=== PATIENT | female | born 1955 | race Hispanic/Latino ===

== ENCOUNTER 2021-11-14 14:13 | Inpatient (IN) | payer SELFPAY ==
[~2021-11-14] VITALS: Ht 152.4 cm; Wt 63.5 kg
[2021-11-14] MEDS ORDERED: SODIUM CHLORIDE FLUSH 10 ML SYR INJ PRN (16:00)
[2021-11-14 16:11] LABS: BASOPHILS % 0.5 % (0.0-1.0); EOSINOPHILS # (AUTO) 0.1 (0.0-0.4); EOSINOPHILS % 0.7 % (0.0-6.0); HEMOGLOBIN 11.6 g/dL (12.0-16.0); LYMPHOCYTES # (AUTO) 0.5 (1.0-3.2); LYMPHOCYTES % 6.8 % (18.0-39.1); MEAN CORPUSCULAR HEMOGLOBIN 25.5 pg (28-32); MEAN CORPUSCULAR HGB CONC 32.2 g/dL (31-35); MEAN CORPUSCULAR VOLUME 79.1 fL (81-99); MONOCYTES # (AUTO) 0.5 (0.2-0.8); MONOCYTES % 6.4 % (4.4-11.3); NEUTROPHILS # (AUTO) 6.3 (2.1-6.9); NEUTROPHILS % 85.2 % (38.7-80.0); PLATELET COUNT 279 x10e3/uL (140-360); RED BLOOD COUNT 4.55 x10e6/uL (3.6-5.1); RED CELL DISTRIBUTION WIDTH 15.1 % (11.7-14.4)
[2021-11-14 16:12] LABS: INR 1.01; PROTHROMBIN TIME 14.2 seconds (11.9-14.5)
[2021-11-14 16:13] LABS: PARTIAL THROMBOPLASTIN TIME 32.1 seconds (23.8-35.5)
[2021-11-14 16:19] LABS: ALANINE AMINOTRANSFERASE 16 IU/L (0-55); ALBUMIN 3.2 g/dL (3.5-5.0); ALBUMIN/GLOBULIN RATIO 0.8 (0.8-2.0); ALKALINE PHOSPHATASE 72 IU/L (40-150); ANION GAP 14.9 mmol/L (8-16); BLOOD UREA NITROGEN 15 mg/dL (7-26); BUN/CREATININE RATIO 17 (6-25); CALCIUM 8.7 mg/dL (8.4-10.2); CARBON DIOXIDE 25 mmol/L (22-29); CHLORIDE 105 mmol/L (98-107); CREATININE, SERUM 0.87 mg/dL (0.57-1.11); GLUCOSE 169 mg/dL (74-118); POTASSIUM 3.9 mmol/L (3.5-5.1); SODIUM 141 mmol/L (136-145)
[2021-11-14 16:28] LABS: CLARITY,URINE HAZY (CLEAR); COLOR,URINE YELLOW (YELLOW); KETONES,URINE NEGATIVE (NEGATIVE); LEUKOCYTE ESTERASE ,URINE TRACE (NEGATIVE); NITRITE,URINE NEGATIVE (NEGATIVE); PROTEIN,URINE DIPSTICK 1+ (NEGATIVE); URINE UROBILINOGEN 1 mg/dL (0.2 - 1)
[2021-11-14 16:37] LABS: AMORPHOUS SEDIMENT,URINE MODERATE (FEW); BACTERIA,URINE MANY /HPF; WBC,URINE (MAN) 0-5 /HPF (0-5)
[2021-11-14] MEDS ORDERED: ONDANSETRON HCL INJ 2MG/ML 2ML 2 MG/ML VIAL IV STA (16:50)
[2021-11-14] MEDS ORDERED: Morphine 4mg INJECTION 4 MG/ML INJ IV ONE (17:00)
[2021-11-14] MEDS ORDERED: Morphine 4mg INJECTION 4 MG/ML INJ ONE (17:07)
[2021-11-14] MEDS ORDERED: ONDANSETRON HCL INJ 2MG/ML 2ML 2 MG/ML VIAL ONE (17:07)
[2021-11-14 18:26] VITALS: BP 176/56
[2021-11-14] MEDS ORDERED: DIOVAN160 MG PO (18:29)
[2021-11-14] MEDS ORDERED: BENFOTIAMINE150 MG PO (18:31)
[2021-11-14] MEDS ORDERED: CARVEDILOL12.5 MG PO (18:31)
[2021-11-14] MEDS ORDERED: ATORVASTATIN CA20 MG PO (18:31)
[2021-11-14 18:38] VITALS: BP 176/56
[2021-11-14 20:00] VITALS: BP 156/73
[2021-11-14] MEDS ORDERED: SLOW-MAG64 MG PO (21:09)
[2021-11-14] MEDS ORDERED: DOCUSATE SODIUM 100 MG CAP PO PRN (22:30)
[2021-11-14] MEDS ORDERED: ACETAMINOPHEN 325 MG TAB PO PRN (22:30)
[2021-11-14] MEDS ORDERED: DEXTROSE 50% SYRINGE 50 ML IV PRN (22:30)
[2021-11-14 22:52] LABS: CHOL/HDL RATIO 3.6 (3.0-3.6)
[2021-11-14] MEDS: ONDANSETRON HCL INJ 2MG/ML 2ML 2 MG/ML VIAL IV PRN (23:54)
[2021-11-14] MEDS: Morphine 4mg INJECTION 4 MG/ML INJ IV PRN (23:54)
[2021-11-15] VITALS (7 sets, daily range): BP systolic 148–167; BP diastolic 66–74
[2021-11-15 05:14] LABS: BASOPHILS % 0.3 % (0.0-1.0); EOSINOPHILS # (AUTO) 0.1 (0.0-0.4); EOSINOPHILS % 1.5 % (0.0-6.0); HEMATOCRIT 30.8 % (34.2-44.1); HEMOGLOBIN 9.8 g/dL (12.0-16.0); LYMPHOCYTES # (AUTO) 0.8 (1.0-3.2); LYMPHOCYTES % 13.2 % (18.0-39.1); MEAN CORPUSCULAR HEMOGLOBIN 25.7 pg (28-32); MEAN CORPUSCULAR HGB CONC 31.8 g/dL (31-35); MEAN CORPUSCULAR VOLUME 80.6 fL (81-99); MONOCYTES # (AUTO) 0.5 (0.2-0.8); MONOCYTES % 8.5 % (4.4-11.3); NEUTROPHILS # (AUTO) 4.5 (2.1-6.9); NEUTROPHILS % 76.2 % (38.7-80.0); PLATELET COUNT 227 x10e3/uL (140-360); RED BLOOD COUNT 3.82 x10e6/uL (3.6-5.1); RED CELL DISTRIBUTION WIDTH 15.1 % (11.7-14.4)
[2021-11-15 05:48] LABS: ALBUMIN 2.8 g/dL (3.5-5.0); ALBUMIN/GLOBULIN RATIO 0.7 (0.8-2.0); ANION GAP 14.5 mmol/L (8-16); CALCIUM 8.3 mg/dL (8.4-10.2); CREATININE, SERUM 0.78 mg/dL (0.57-1.11); POTASSIUM 3.5 mmol/L (3.5-5.1)
[2021-11-15] MEDS ORDERED: SODIUM CHLORIDE 0.9% 250ML 250 ML ONE (05:57)
[2021-11-15] MEDS: INSULIN REGULAR, HUMAN 100 UNIT/1 ML SQ SCH ×4 (07:30→20:11)
[2021-11-15] MEDS: VALSARTAN 160 MG TAB PO SCH (08:39)
[2021-11-15] MEDS: CARVEDILOL 12.5 MG TAB PO SCH ×2 (08:40→16:20)
[2021-11-15] MEDS: Morphine 4mg INJECTION 4 MG/ML INJ IV PRN (13:57)
[2021-11-15] MEDS ORDERED: ENOXAPARIN SOD INJ 40 MG/0.4 ML SYR SC SCH ×2 (17:00)
[2021-11-15] MEDS: ATORVASTATIN 20 MG TAB PO SCH (20:10)
[2021-11-16] VITALS (7 sets, daily range): BP systolic 166–173; BP diastolic 64–71
[2021-11-16] MEDS: INSULIN REGULAR, HUMAN 100 UNIT/1 ML SQ SCH ×4 (07:30→21:36)
[2021-11-16] MEDS: VALSARTAN 160 MG TAB PO SCH (09:00)
[2021-11-16 09:58] LABS: ANION GAP 12.6 mmol/L (8-16); CALCIUM 8.2 mg/dL (8.4-10.2); CREATININE, SERUM 0.79 mg/dL (0.57-1.11); POTASSIUM 3.6 mmol/L (3.5-5.1)
[2021-11-16] MEDS ORDERED: POVIDONE IODINE 0.05% 0.05 % ML PO ONE (13:22)
[2021-11-16] MEDS ORDERED: ONDANSETRON HCL INJ 2MG/ML 2ML 2 MG/ML VIAL ONE (13:22)
[2021-11-16] MEDS ORDERED: DEXAMETHASONE SOD PHOS INJ 4 MG/ML SDV ONE (13:22)
[2021-11-16] MEDS ORDERED: SEVOFLURANE INHAL SOLN 250 ML PEN BTL ONE (13:22)
[2021-11-16] MEDS ORDERED: PROPOFOL IV EMULSION 10 MG/ML 20 ML VIAL ONE (13:22)
[2021-11-16] MEDS ORDERED: LIDOCAINE HCL 2% LOCAL INJ 5 ML SDV VIAL INJ ONE (13:22)
[2021-11-16] MEDS ORDERED: MIDAZOLAM HCL 2 MG/2 ML VIAL ONE (14:25)
[2021-11-16] MEDS ORDERED: FENTANYL CITRATE/PF 100MCG/2 ML INJ ONE (14:25)
[2021-11-16] MEDS: CARVEDILOL 12.5 MG TAB PO SCH (17:31)
[2021-11-16] MEDS: HYDROCODONE/APAP 5MG-325MG TAB PO PRN (18:45)
[2021-11-16] MEDS: Morphine 4mg INJECTION 4 MG/ML INJ IV PRN (21:27)
[2021-11-16] MEDS: ONDANSETRON HCL INJ 2MG/ML 2ML 2 MG/ML VIAL IV PRN (21:27)
[2021-11-16] MEDS: ATORVASTATIN 20 MG TAB PO SCH (21:28)
[2021-11-17] VITALS: BP 173/67
[2021-11-17 04:00] VITALS: BP 158/63
[2021-11-17 05:57] LABS: BASOPHILS % 0.1 % (0.0-1.0); LYMPHOCYTES # (AUTO) 0.4 (1.0-3.2); LYMPHOCYTES % 5.2 % (18.0-39.1); MEAN CORPUSCULAR HEMOGLOBIN 25.4 pg (28-32); MEAN CORPUSCULAR HGB CONC 32.1 g/dL (31-35); MEAN CORPUSCULAR VOLUME 79.1 fL (81-99); MONOCYTES # (AUTO) 0.5 (0.2-0.8); MONOCYTES % 6.4 % (4.4-11.3); NEUTROPHILS # (AUTO) 6.9 (2.1-6.9); NEUTROPHILS % 87.7 % (38.7-80.0); PLATELET COUNT 223 x10e3/uL (140-360); RED BLOOD COUNT 3.54 x10e6/uL (3.6-5.1); RED CELL DISTRIBUTION WIDTH 14.8 % (11.7-14.4)
[2021-11-17 06:16] LABS: ANION GAP 13.7 mmol/L (8-16); CALCIUM 8.2 mg/dL (8.4-10.2); CREATININE, SERUM 0.87 mg/dL (0.57-1.11); POTASSIUM 3.7 mmol/L (3.5-5.1)
[2021-11-17] MEDS: INSULIN REGULAR, HUMAN 100 UNIT/1 ML SQ SCH ×4 (07:30→22:27)
[2021-11-17 08:00] VITALS: BP 158/87
[2021-11-17] MEDS: CARVEDILOL 12.5 MG TAB PO SCH ×2 (09:00→17:21)
[2021-11-17] MEDS: VALSARTAN 160 MG TAB PO SCH (09:00)
[2021-11-17] MEDS: HYDROCODONE/APAP 5MG-325MG TAB PO PRN ×2 (10:27→17:15)
[2021-11-17 12:00] VITALS: BP 176/64
[2021-11-17 12:05] VITALS: BP 158/87
[2021-11-17] MEDS ORDERED: DOXYCYCLINE HY100 MG PO (18:20)
[2021-11-17 18:35] VITALS: BP 165/75
[2021-11-17] MEDS: ATORVASTATIN 20 MG TAB PO SCH (22:22)
[2021-11-18] VITALS (7 sets, daily range): BP systolic 168–180; BP diastolic 63–73
[2021-11-18] MEDS ORDERED: GABAPENTIN100 MG PO (06:40)
[2021-11-18] MEDS ORDERED: TYLENOL325 M2 PO (06:40)
[2021-11-18] MEDS: CARVEDILOL 12.5 MG TAB PO SCH (08:07)
[2021-11-18] MEDS: VALSARTAN 160 MG TAB PO SCH (08:07)
[2021-11-18] MEDS: INSULIN REGULAR, HUMAN 100 UNIT/1 ML SQ SCH ×2 (08:11→11:37)
[2021-11-18] MEDS ORDERED: ONDANSETRON HCL 4 MG ORAL DISINTEGRATING TAB PO PRN (11:30)
[2021-11-18] MEDS ORDERED: LABETALOL HCL 5 MG/ML 20ML VIAL IV ONE (12:00)
[2021-11-18] MEDS ORDERED: HYDRALAZINE HCL 20 MG/ML VIAL IV ONE (14:15)
== END 2021-11-18 15:41 | DRG 617 ==
LOC: ER 14:54 → ERHOLD 15:56 → MED/SURG 17:42
PROVIDERS: ADMIT Internal Medicine; ATTEND Internal Medicine
PROC: 0Y6N0Z9 Detachment at Left Foot, Partial 1st Ray, Open Approach (ICD-10-PCS; 2021-11-16)
PROC: 0Y6Q0Z0 Detachment at Left 1st Toe, Complete, Open Approach (ICD-10-PCS; principal; 2021-11-16 12:08)
DX: E11.69 Type 2 diabetes mellitus with other specified complication (principal); E11.52 Type 2 diabetes mellitus with diabetic peripheral angiopathy with gangrene; I96 Gangrene, not elsewhere classified; N39.0 Urinary tract infection, site not specified; J81.1 Chronic pulmonary edema; M86.172 Other acute osteomyelitis, left ankle and foot; E11.621 Type 2 diabetes mellitus with foot ulcer; L97.524 Non-pressure chronic ulcer of other part of left foot with necrosis of bone; Z79.4 Long term (current) use of insulin; E78.5 Hyperlipidemia, unspecified; E11.628 Type 2 diabetes mellitus with other skin complications; L03.032 Cellulitis of left toe; I11.0 Hypertensive heart disease with heart failure; I50.9 Heart failure, unspecified; E11.40 Type 2 diabetes mellitus with diabetic neuropathy, unspecified; Z20.822 Contact with and (suspected) exposure to COVID-19
CPT/HCPCS: 0223U; 36415; 71045; 80048; 80053; 80061; 81001; 82948; 83036; 83605; 85025; 85610; 85651; 85730; 87040; 87071; 87075; 87186; 87205; 88304; 88305; 88311; 93005; 94799; 99284; J0360; J1100; J1650; J1817; J2001; J2250; J2270; J2405; J2543; J3010; J7050